=== PATIENT | female | born 1975 | race Asian ===

== ENCOUNTER 2019-02-27 07:22 | Day surgery (SDC) | payer MEDICAID ==
[~2019-02-27] VITALS: Ht 157.5 cm; Wt 62.9 kg
[2019-02-27] VITALS (16 sets, daily range): BP systolic 109–127; BP diastolic 62–82; PULSE 68–90; RESP 15–19; Ht 157.5 cm; Wt 62.9 kg
[~2019-02-27 07:22] MED LIST: ATOR10TA65 PO; CALC1TAB79 PO; OMEG1CAP17 PO; POTA20TA15 PO; TURM500C9 PO
[2019-02-27] MEDS ORDERED: SOD CHLORIDE 0.9% 1,000 ML IV SCH (12:00)
[2019-02-27] MEDS ORDERED: ISOSULFAN BLUE 1% 5 ML INJ SC ONE (13:01)
[2019-02-27] MEDS ORDERED: BUPIVACAINE 0.5%/EPI (SDV) 10 ML INJ ONE (13:02)
[2019-02-27] MEDS ORDERED: MEPERIDINE 100 MG INJ ONE (13:21)
[2019-02-27] MEDS ORDERED: LIDOCAINE 2% (SDV) 5 ML INJ ONE (13:21)
[2019-02-27] MEDS ORDERED: ONDANSETRON 4 MG INJ ONE (13:21)
[2019-02-27] MEDS ORDERED: PROPOFOL 20 ML ONE (13:21)
[2019-02-27] MEDS ORDERED: CEFAZOLIN 1 GM INJ ONE (13:21)
[2019-02-27] MEDS ORDERED: METOCLOPRAMIDE 10 MG INJ ONE (13:21)
[2019-02-27] MEDS ORDERED: BUPIVACAINE 0.25%/EPI (SDV) 10 ML INJ ONE ×2 (13:37)
[2019-02-27] MEDS ORDERED: MIDAZOLAM 1 MG/ML 2 ML INJ ONE (14:34)
[2019-02-27] MEDS ORDERED: MIDAZOLAM 1 MG/ML 2 ML INJ IV PRN (15:30)
[2019-02-27] MEDS ORDERED: DIPHENHYDRAMINE 50 MG INJ IV PRN (15:30)
[2019-02-27] MEDS ORDERED: ONDANSETRON 4 MG INJ IV PRN ×2 (15:30→16:00)
[2019-02-27] MEDS ORDERED: HYDROmorphONE 1 MG/5 ML IV SYRINGE IV PRN ×3 (15:30)
[2019-02-27] MEDS ORDERED: FENTAnyl 50 MCG/ML VIAL IV PRN ×3 (15:30)
[2019-02-27] MEDS ORDERED: MEPERIDINE 25 MG INJ IV PRN (15:30)
[2019-02-27] MEDS ORDERED: METOCLOPRAMIDE 10 MG INJ IV PRN (15:30)
[2019-02-27] MEDS ORDERED: morphine 2 MG INJ IV PRN (16:00)
[2019-02-27] MEDS ORDERED: HYDROCODONE/APAP (5/325) TAB PO PRN ×2 (16:00)
== END 2019-02-27 18:17 | disposition home or self-care (01) ==
LOC: SDS 07:22
PROVIDERS: ATTEND Surgery
DX: C50.912 Malignant neoplasm of unspecified site of left female breast (principal); L90.5 Scar conditions and fibrosis of skin
CPT/HCPCS: 19125; 19301; 38500; 88307; J0690; J1170; J2175; J2250; J2405; J2765; Z7512; Z7610; Q9968